=== PATIENT | male | born 1970 | race Caucasian/White ===

== ENCOUNTER 2018-01-26 18:17 | Emergency (ER) | payer OTHER ==
[~2018-01-26] VITALS: Ht 165.1 cm; Wt 93.0 kg
[2018-01-26 18:23] VITALS: BP 136/87
--- NOTE | 2018-01-26 18:31 | NUR ---
PT AMBULATES TO BED 4 Addendum: 01/26/18 at 1832 by MED1 REPORT GIVEN TO TOBY CULLEN
--- NOTE | 2018-01-26 18:32 | NUR ---
47Y/M BIB C/O COUGH. PT STATES "HE HAS A COUGH WITH MID CHEST PAIN X 8 DAYS." DENIES N/V/D; SKIN IS PINK/WARM/DRY; AAOX4 WITH EVEN AND STEADY GAIT; LUNGS CLEAR BL; HR EVEN AND REGULAR; PT DENIES ANY FEVER, CP, SOB, OR COUGH AT THIS TIME; PATIENT STATES PAIN OF 7/10 AT THIS TIME; VSS; PATIENT POSITIONED FOR COMFORT; HOB ELEVATED; BEDRAILS UP X1; BED DOWN. ER MD MADE AWARE OF PT STATUS. HX: DENIES MED: NONE
--- NOTE | 2018-01-26 19:18 | NUR ---
PT RESTING IN BED. VITALS STABLE.
--- NOTE | 2018-01-26 19:40 | NUR ---
Dr. Phan evaluating patient at bedside.
[2018-01-26] MEDS ORDERED: IPRATROPIUM 0.02% 0.5 MG/2.5 ML NEBU INH ONE (19:55)
[2018-01-26] MEDS ORDERED: AZITHROMYCIN 250 MG TAB PO ONE (19:55)
[2018-01-26] MEDS ORDERED: DEXAMETHASONE 10 MG/ML VIAL IM ONE (19:55)
[2018-01-26] MEDS ORDERED: ALBUTEROL 0.083% 2.5 MG/3 ML NEBU INH ONE (19:55)
--- NOTE | 2018-01-26 20:13 | NUR ---
Breathing treatment administered at bedside by respiratory therapist.
[2018-01-26 21:17] VITALS: BP 120/86
--- NOTE | 2018-01-26 21:23 | NUR ---
Patient discharged with v/s stable. Written and verbal after care instructions given and explained. Patient alert, oriented and verbalized understanding of instructions. Ambulatory with steady gait. All questions addressed prior to discharge. ID band removed. Patient advised to follow up with PMD. Rx of ROBATUSSIN, ALBUTEROL, PREDNISONE, Z-CASPER given. Patient educated on indication of medication including possible reaction and side effects. Opportunity to ask questions provided and answered.
== END 2018-01-26 21:23 | disposition home or self-care (01) ==
LOC: MED 18:17
DX: J45.909 Unspecified asthma, uncomplicated (principal); Z88.0 Allergy status to penicillin
CPT/HCPCS: 94640; 94760; 96372; 99283; J1100; J7613; J7644

== ENCOUNTER 2018-03-15 18:33 | Emergency (ER) | payer OTHER ==
[~2018-03-15] VITALS: Ht 165.1 cm; Wt 83.9 kg
[2018-03-15 18:41] VITALS: BP 126/81
--- NOTE | 2018-03-15 18:45 | NUR ---
PT AMBULATED TO ROOM 10
--- NOTE | 2018-03-15 18:46 | NUR ---
47 Y.O MALE CAME TO THE ED C.C OF SOB, TROUBLE BREATHING AND CHEST TIGHNESS. THE S/SX STARTED YESTERDAY AND HAVE PROGRESSIVELY GOTTEN WORSE. PT HAS USED HIS ALBUTEROLX3 TODAY INHALER BUT IT HAS NOT WORKED. THE S/SX STARTED WHILE THE PT WAS AT WORK YESTERDAY. PT BELIEVES HE HAS A DX OF ASTHMA HE WAS GIVEN AN ALBUTEROL INHALER BY A DR "NOT TO LONG AGO". PTS SKIN IS WARM TO THE TOUCH AND PT IS SLIGHTLY DIAPHORETIC. PTS LUNGS BILATERALLY HAVE WHEEZES AND DIMINISHED IN LOWER BASES. 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 PT IS IN NSR. S1S2 PRESENT AND HEARD. PT MEDICAL HX: ASTHMA, DENIES OTHER ISSUES
[2018-03-15] MEDS ORDERED: IPRATROPIUM 0.02% 0.5 MG/2.5 ML NEBU INH ONE (19:20)
[2018-03-15] MEDS ORDERED: ALBUTEROL 0.083% 2.5 MG/3 ML NEBU INH ONE (19:20)
[2018-03-15] MEDS ORDERED: DEXAMETHASONE 10 MG/ML VIAL IM ONE (19:20)
--- NOTE | 2018-03-15 19:30 | NUR ---
xray ta bedside
--- NOTE | 2018-03-15 19:48 | NUR ---
breating treaments done, pt jojo well. reports feeling better. More airflow noted to adalberto upper lobes, diminished at bases with faint wheezing noted. Pt on RA @94%. ER MD made aware
--- NOTE | 2018-03-15 20:17 | NUR ---
Patient discharged with v/s stable. Written and verbal after care instructions given and explained. Patient alert, oriented and verbalized understanding of instructions. Ambulatory with steady gait. All questions addressed prior to discharge. ID band removed. Patient advised to follow up with PMD. Rx of prednisone, zpak, QVAR INH, PROAIR given. Patient educated on indication of medication including possible reaction and side effects. Opportunity to ask questions provided and answered.
[2018-03-15 20:19] VITALS: BP 126/78
== END 2018-03-15 20:17 | disposition home or self-care (01) ==
LOC: MED 18:33
DX: J40 Bronchitis, not specified as acute or chronic (principal); Z88.0 Allergy status to penicillin
CPT/HCPCS: 71045; 94640; 96372; 99283; J1100; J7613; J7644; Q0092

== ENCOUNTER 2018-04-15 07:30 | Emergency (ER) | payer OTHER ==
[~2018-04-15] VITALS: Ht 170.2 cm; Wt 89.4 kg
--- NOTE | 2018-04-15 07:37 | NUR ---
PT AMBULATES TO BED 4
[2018-04-15 07:39] VITALS: BP 141/92
--- NOTE | 2018-04-15 07:42 | NUR ---
DR MOTLEY AT [facility] FOR PT EVALUATION Addendum: 04/15/18 at [address] MOTLEY AT [facility] FOR PT EVALUATION
[2018-04-15] MEDS ORDERED: ALBUTEROL SULFATE/IPRATROPIU 3 ML SOL IH ONE ×3 (07:45→10:10)
[2018-04-15] MEDS ORDERED: methylPREDNISolone SS 125 MG/2 ML VIAL IM ONE (07:45)
--- NOTE | 2018-04-15 07:47 | NUR ---
48 YO M BIB SELF W/C/O/ SOB. PT WITH EXPRITORY WHEEZES , LABORED SHALLOW RR, EVEN AND REGULAR RATE, O2SAT AT 94% ON RA. BRISK CAP REFILL. GCS 15, PT SPEAKING IN FULL CLEAR SENTENCES, AAOX4. WILL CONTINUE TO MONITOR. PT POSITIONED FOR COMFORT WITH HOB ELEVATED. ER MADE AWARE.
--- NOTE | 2018-04-15 07:50 | NUR ---
RT AT BEDSIDE FOR BREATHING TX
--- NOTE | 2018-04-15 07:50 | NUR ---
ADMITTING DX: SOB HX:ASTHMA LOC AWAKE AND ALERT RESPONSIVE TO SERVICE SPECIALIST VERBAL COMMANDS HFW POSITION EDUCATION PROVIDED TO PATIENT WITH ACKNOWLEDGEMENT ON HHN THERAPY AND RESPIRATORY DRUG HHN THERAPY GIVEN ORDRED ENCOURAGED PATIENT FOR INTERMITTENT DEEP BREATHING DURING THERAPY PEAK FLOW METER: before 160 lpm after 175 lpm
--- NOTE | 2018-04-15 08:25 | NUR ---
CALLED RT FOR TREATMENT, RT NOW AT BEDSIDE
--- NOTE | 2018-04-15 08:28 | NUR ---
FOLLOW UP HHN THERAPY GIVEN ORDERED ENCORAGED INTERMITTENT DEEP BREATHING DURING THERAPY PEAK FLOW METER before 240 lpm after 255 lpm
--- NOTE | 2018-04-15 08:57 | NUR ---
PT RAETING IN BED WITH HOB ELEVATED IN NO APPEARENT DISTRESS. PT STATES HE FEELS HE IS "BREATHING BETTER", RR EVEN AND UNLABORED AT THIS TIME, WHEEZES THROUGHOUT LUNG FIELD. O2SAT AT 93%. ER MD MADE AWARE
[2018-04-15] MEDS ORDERED: MAG SULF 2000 MG/WATER PREMIX 50 ML IV ONE (10:10)
[2018-04-15] MEDS ORDERED: NACL 0.9% 1,000 ML IV ONE (10:10)
--- NOTE | 2018-04-15 10:11 | NUR ---
CALLED RT FOR TREATMENT
--- NOTE | 2018-04-15 10:18 | NUR ---
FOLLOW UP HH THERAPY GIVEN ORDERED ENCOURAGED PATIENT FOR INTERMITTENT DEEP BREATHING DURING THERAPY PEAK FLOW METER: before 245 lpm after 280 lpm
[2018-04-15 12:53] VITALS: BP 108/75
--- NOTE | 2018-04-15 12:54 | NUR ---
Patient discharged with v/s stable. Written and verbal after care instructions given and explained. Patient alert, oriented and verbalized understanding of instructions. Ambulatory with steady gait. All questions addressed prior to discharge. ID band removed. Patient advised to follow up with PMD. Rx of ALBUTEROL; PREDNISONE given. Patient educated on indication of medication including possible reaction and side effects. Opportunity to ask questions provided and answered.
== END 2018-04-15 12:54 | disposition home or self-care (01) ==
LOC: MED 07:30
DX: J45.901 Unspecified asthma with (acute) exacerbation (principal); R03.0 Elevated blood-pressure reading, without diagnosis of hypertension; Z88.0 Allergy status to penicillin
CPT/HCPCS: 94640; 96365; 96366; 96372; 99285; J2930; J3475; J7030; J7620

== ENCOUNTER 2018-07-14 14:07 | Emergency (ER) | payer OTHER ==
[~2018-07-14] VITALS: Ht 165.1 cm; Wt 90.3 kg
[2018-07-14 14:28] VITALS: BP 146/86
--- NOTE | 2018-07-14 14:33 | NUR ---
PATIENT TO CHAIR
--- NOTE | 2018-07-14 14:37 | NUR ---
PATIENT CAME IN WITH SOB/ASTHMA X 3 DAYS. PATIENT WITH FAMILY MEMBER. LUNG SOUND WHEEZ/RHONKI THROUGHOUT. ERMD MADE AWARE. RESP. TX ORDERED BY DR. DE GUZMAN
[2018-07-14] MEDS ORDERED: DEXAMETHASONE 10 MG/ML VIAL IM ONE ×2 (14:40→14:55)
[2018-07-14] MEDS ORDERED: ALBUTEROL SULFATE/IPRATROPIU 3 ML SOL IH ONE ×2 (14:40→14:53)
[2018-07-14] MEDS ORDERED: CLINDAMYCIN 600 MG/4 ML VIAL IM ONE (14:55)
--- NOTE | 2018-07-14 15:00 | NUR ---
ER , DR. DE GUZMAN ORDERED DUONEB BREATHING TREATMENT. HHN ADMINISTERED. PATIENT TOLERATED TX WELL, NO ADVERSE SIDE EFFECTS. NO ACUTE RESPIRATORY DISTRESS NOTED AT THIS TIME. WILL CONTINUE TOMORROW.
--- NOTE | 2018-07-14 15:02 | NUR ---
RESPIRATORY TREATMENT IN PROGRESS
--- NOTE | 2018-07-14 15:06 | NUR ---
PT TAKEN TO RADIOLOGY AT THIS TIME
--- NOTE | 2018-07-14 15:16 | NUR ---
LUNG SOUND CLEAR THROUGHOUT AFTER THE TREATMENT
[2018-07-14] MEDS ORDERED: DEXAMETHASONE 4 MG/ML VIAL ONE (15:33)
[2018-07-14] MEDS ORDERED: CLINDAMYCIN 600 MG/4 ML VIAL ONE (15:35)
[2018-07-14 17:05] VITALS: BP 122/80
--- NOTE | 2018-07-14 17:05 | NUR ---
Patient discharged with v/s stable. Written and verbal after care instructions given and explained. Patient alert, oriented and verbalized understanding of instructions. Ambulatory with steady gait. All questions addressed prior to discharge. ID band removed. Patient advised to follow up with PMD. Rx of ALBUTEROL INH,LEVAQUIN 500 MG,PROMETHAZINE DM,PREDNISONE given. Patient educated on indication of medication including possible reaction and side effects. Opportunity to ask questions provided and answered.
== END 2018-07-14 17:05 | disposition home or self-care (01) ==
LOC: MED 14:07
DX: J45.901 Unspecified asthma with (acute) exacerbation (principal); Z88.0 Allergy status to penicillin
CPT/HCPCS: 71046; 94640; 96372; 99283; J1100; J3490; J7620